=== PATIENT | female | born 1975 | race Caucasian/White ===

== ENCOUNTER 2016-05-21 17:10 | Emergency (ER) | payer BC ==
[~2016-05-21 17:10] MED LIST: ELAVIL 25 MG TA25 MG PO; FLEXERIL 10 MG10 MG PO; IBUPROFEN800 MG PO; NAPROXEN500 MG PO; NORCO 5-325 TA1 EACH PO
[2016-05-21 18:25] LABS: HEMOGLOBIN 13.4 gm/dl (12.3-15.3); RED BLOOD COUNT 4.6 M/UL (4.00-5.10); WHITE BLOOD COUNT 7.5 K/UL (4.5-11.0)
[2016-05-21 18:49] LABS: BUN/CREATININE RATIO 12 (0-10)
== END 2016-05-21 23:50 | disposition home or self-care (01) ==
LOC: ER1 17:10
PROVIDERS: Emergency Medicine
DX: R10.12 Left upper quadrant pain (principal); R07.2 Precordial pain; R11.0 Nausea; M79.7 Fibromyalgia
CPT/HCPCS: 36415; 71010; 80053; 81001; 82550; 82553; 83690; 83874; 84484; 84703; 85025; 87086; 93005; 96361; 96374; 96375; 99285; J1200; J1885; J2405

== ENCOUNTER 2016-12-06 19:32 | Emergency (ER) | payer BC | END 2016-12-06 21:52 | disposition home or self-care (01) | LOC: ER1 19:32 | DX: R51 Headache (principal); F17.200 Nicotine dependence, unspecified, uncomplicated | CPT/HCPCS: 96372; 99283; J1885; J2360 ==

== ENCOUNTER 2020-05-12 11:38 | Emergency (ER) | payer BC ==
[~2020-05-12 11:38] MED LIST changes: +AUGMENTIN 875-1 EACH PO; +CBD TD; +CLEOCIN HCL300 MG PO; +IBUPROFEN600 MG PO; +K-DUR TAB 20 M20 MEQ PO; +MACROBID 100 M100 MG PO; +PREDNISONE 50 M50 MG PO; +VOLTAREN 1% TOP; +[UNRECOGNIZED DRUG - OTHER]
[2020-05-12 12:26] LABS: HEMOGLOBIN 14.3 gm/dl (12.3-15.3); RED BLOOD COUNT 4.91 M/UL (4.00-5.10); WHITE BLOOD COUNT 5.4 K/UL (4.5-11.0)
[2020-05-12 12:51] LABS: BUN/CREATININE RATIO 22 (0-10)
[2020-05-12] MEDS ORDERED: BUSPIRONE HCL5 MG PO (15:51)
== END 2020-05-12 16:19 | disposition home or self-care (01) ==
LOC: ER1 11:38
PROVIDERS: Physician Assistant
DX: R07.89 Other chest pain (principal); H93.8X2 Other specified disorders of left ear; K21.9 Gastro-esophageal reflux disease without esophagitis; F17.210 Nicotine dependence, cigarettes, uncomplicated; Z90.49 Acquired absence of other specified parts of digestive tract; Z90.710 Acquired absence of both cervix and uterus; Z79.899 Other long term (current) drug therapy
CPT/HCPCS: 71045; 80053; 82550; 82553; 83874; 84439; 84443; 84484; 85025; 85379; 93005; 96374; 99284; J1885; Q0177

== ENCOUNTER → 2020-05-14 | Outpatient (CLI) | payer BC ==
[~2020-05-14] MED LIST changes: +BUSPIRONE HCL5 MG PO
== END ==
LOC: KOH-I 14:59
DX: R59.0 Localized enlarged lymph nodes (principal)
CPT/HCPCS: 76536

== ENCOUNTER → 2020-06-21 | Outpatient (CLI) | payer BC, OTHER | LOC: CT 09:00 | DX: R59.1 Generalized enlarged lymph nodes (principal); J34.89 Other specified disorders of nose and nasal sinuses | CPT/HCPCS: 70491; Q9963 ==

== ENCOUNTER 2021-04-10 22:17 | Emergency (ER) | payer BC ==
[2021-04-10 23:20] LABS: RED BLOOD COUNT 4.19 M/UL (4.00-5.10); WHITE BLOOD COUNT 7.8 K/UL (4.5-11.0)
[2021-04-11 00:29] LABS: BUN/CREATININE RATIO 24 (0-10)
[2021-04-11] MEDS ORDERED: ZOFRAN ODT 4 MG4 MG PO (04:03)
[2021-04-11] MEDS ORDERED: IBUPROFEN600 MG PO (04:03)
[2021-04-11] MEDS ORDERED: BENADRYL 50MG C50 MG PO (04:03)
== END 2021-04-11 04:14 | disposition home or self-care (01) ==
LOC: ER1 22:17
PROVIDERS: Physician Assistant
DX: R51.9 Headache, unspecified (principal); R11.2 Nausea with vomiting, unspecified; R42 Dizziness and giddiness; Z20.822 Contact with and (suspected) exposure to COVID-19; Z90.710 Acquired absence of both cervix and uterus; Z90.49 Acquired absence of other specified parts of digestive tract
CPT/HCPCS: 70450; 80053; 85025; 99284; U0002

== ENCOUNTER 2021-05-21 14:19 | Emergency (ER) | payer BC ==
[~2021-05-21 14:19] MED LIST changes: +BENADRYL 50MG C50 MG PO; +ZOFRAN ODT 4 MG4 MG PO
[2021-05-21 16:24] LABS: HEMOGLOBIN 14.4 gm/dl (12.3-15.3); RED BLOOD COUNT 4.86 M/UL (4.00-5.10); WHITE BLOOD COUNT 4.7 K/UL (4.5-11.0)
[2021-05-21 16:44] LABS: BUN/CREATININE RATIO 17 (0-10)
[2021-05-21] MEDS ORDERED: PROTONIX40 MG PO (20:34)
[2021-05-21] MEDS ORDERED: MYLANTA MAXIMU355 ML PO (20:34)
[2021-05-21] MEDS ORDERED: ONDANSETRON ODT4 MG SL (20:34)
== END 2021-05-21 21:21 | disposition home or self-care (01) ==
LOC: ER1 14:19
PROVIDERS: Physician Assistant Medical
DX: R10.13 Epigastric pain (principal); R10.11 Right upper quadrant pain; R10.12 Left upper quadrant pain; E86.0 Dehydration; R11.2 Nausea with vomiting, unspecified; F17.210 Nicotine dependence, cigarettes, uncomplicated; R10.811 Right upper quadrant abdominal tenderness; R10.812 Left upper quadrant abdominal tenderness; R10.816 Epigastric abdominal tenderness; Z88.8 Allergy status to other drugs, medicaments and biological substances; Z88.5 Allergy status to narcotic agent
CPT/HCPCS: 80053; 81001; 82150; 83605; 83690; 85025; 85652; 86140; 96374; 96375; 99284; C9113; J2405; Q9967